=== PATIENT | female | born 1960 | race Caucasian/White ===

== ENCOUNTER → 2018-07-14 | Emergency (ER) | payer MEDICAID ==
[~2018-07-14] VITALS: Ht 149.9 cm; Wt 62.6 kg
[~2018-07-14] MED LIST: IPRATROPIUM/ALBUTEROL SULFATE 3 ML AMPUL.NEB (DUONEB) INH ONE; methylPREDNISolone SOD SUCC/PF 62.5 MG/ML VIAL IVP ONE
[2018-07-14 22:38] VITALS: BP_SYST 143
--- NOTE | 2018-07-14 22:44 | NUR ---
Pt c/o difficulty breathing with cough since 2029 tonight. Pt states that she took breathing tx and inhaler at home, but no relief. Able to speak in clear sentences, respirations even and non-labored, NAD, VSS. SPO2 99% RA. Denies c/o C/P.
--- NOTE | 2018-07-14 22:44 | NUR ---
Pt ambulatory to bed 6 for evaluation
--- NOTE | 2018-07-14 23:14 | NUR ---
Dr. Guevara at bedside.
--- NOTE | 2018-07-14 23:30 | NUR ---
# 22 gauge angiocath placed to Left Wrist. Use of asceptic technique. Opsite placed over site. Blood return noted. Blood for lab drawn from site. Flushed with 10 cc of normal saline. No evidence of infiltration noted. Patient tolerated well.
--- NOTE | 2018-07-14 23:37 | NUR ---
X-ray at bedside.
[2018-07-14 23:54] LABS: BASOPHILS % (AUTO) 0.6 % (0.0-2.0); EOSINOPHILS # (AUTO) 0.3 K/uL (0.0-0.4); EOSINOPHILS % (AUTO) 3.4 % (0.0-4.0); HEMOGLOBIN 13.1 g/dL (12.0-16.0); LYMPHOCYTES # (AUTO) 2.4 K/uL (1.0-5.5); MEAN CORPUSCULAR HEMOGLOBIN 30 pg (27-31); MEAN CORPUSCULAR HGB CONC 35 % (32-36); MEAN CORPUSCULAR VOLUME 88 fL (79.0-98.0); MONOCYTES # (AUTO) 0.7 K/uL (0.0-1.0); MONOCYTES % (AUTO) 7.5 % (1.7-9.3); NEUTROPHILS # (AUTO) 5.4 K/uL (1.8-7.7); NEUTROPHILS % (AUTO) 61.5 % (40.0-70.0); PLATELET COUNT (AUTO) 310 K/uL (130-430); RED BLOOD CELL COUNT(AUTO) 4.31 MIL/uL (4.2-6.2); RED CELL DISTRIBUTION WIDTH 13.4 % (9.0-15.0); WHITE BLOOD COUNT (AUTO) 8.8 K/uL (4.8-10.8)
--- NOTE | 2018-07-15 | NUR ---
RT at bedside to administer breathing tx.
[2018-07-15 00:09] LABS: CALCIUM 9.4 mg/dL (8.4-11.0); CREATININE 0.97 mg/dL (0.55-1.30); POTASSIUM 3.1 mmol/L (3.5-5.1)
[2018-07-15 00:16] LABS: ALBUMIN 3.6 g/dL (3.4-4.8); TOTAL BILIRUBIN 0.1 mg/dL (0.0-1.0)
--- NOTE | 2018-07-15 00:26 | NUR ---
Pt states that she feels better. No SOB, denies C/P, NAD, VSS. SPO2 98% RA. Family member at bedside.
[2018-07-15 00:42] VITALS: BP_SYST 136
--- NOTE | 2018-07-15 00:42 | NUR ---
Patient given written and verbal discharge instructions and verbalizes understanding. ER MD discussed with patient the results and treatment provided. Patient in stable condition. ID arm band removed. IV catheter removed intact and dressing applied, no active bleeding. Rx of prednisone given. Patient educated on pain management and to follow up with PMD in 2-3 days. Pain Scale 0/10 Opportunity for questions provided and answered. Medication side effect fact sheet provided.
== END | disposition still patient (30) ==
LOC: SED 22:30
DX: J45.901 Unspecified asthma with (acute) exacerbation (principal); I10 Essential (primary) hypertension; Z90.49 Acquired absence of other specified parts of digestive tract
CPT/HCPCS: 36415; 71045; 80053; 85025; 87040; 94640; 96374; 99284; J2930; J7620

== ENCOUNTER 2018-09-08 17:09 | Emergency (ER) | payer MEDICAID ==
[~2018-09-08] VITALS: Ht 144.8 cm; Wt 61.2 kg
[2018-09-08 17:10] VITALS: BP_SYST 139
[2018-09-08] MEDS ORDERED: HYDROcodone/ACETAMIN 10-325 MG TAB PO ONE (18:15)
[2018-09-08 18:44] VITALS: BP_SYST 138
== END 2018-09-08 18:46 | disposition home or self-care (01) ==
LOC: SED 17:09
DX: S63.91XA Sprain of unspecified part of right wrist and hand, initial encounter (principal); J45.909 Unspecified asthma, uncomplicated; I10 Essential (primary) hypertension; X50.9XXA Other and unspecified overexertion or strenuous movements or postures, initial encounter; Y93.89 Activity, other specified; Y92.89 Other specified places as the place of occurrence of the external cause; Y99.8 Other external cause status
CPT/HCPCS: 99283

== ENCOUNTER 2018-10-01 09:38 | Emergency (ER) | payer MEDICAID ==
[~2018-10-01] VITALS: Ht 149.9 cm; Wt 61.2 kg
[2018-10-01 09:47] VITALS: BP_SYST 125
[2018-10-01] MEDS ORDERED: ALBUTEROL SULFATE 0.083% 2.5 MG/3 ML VIAL.NEB IH ONE ×2 (10:00→10:30)
[2018-10-01] MEDS ORDERED: IPRATROPIUM BROM 0.5 MG/2.5 ML VIAL.NEB (ATROVENT) IH ONE ×2 (10:00→10:30)
[2018-10-01] MEDS ORDERED: methylPREDNISolone SOD SUCC/PF 62.5 MG/ML VIAL IVP ONE (10:00)
[2018-10-01] MEDS ORDERED: ALBUTEROL SULFATE 0.083% 2.5 MG/3 ML VIAL.NEB INH ONE (10:34)
[2018-10-01] MEDS ORDERED: IPRATROPIUM BROM 0.5 MG/2.5 ML VIAL.NEB (ATROVENT) INH ONE (10:34)
[2018-10-01 11:32] VITALS: BP_SYST 136
== END 2018-10-01 11:33 | disposition home or self-care (01) ==
LOC: SED 09:38
DX: J45.901 Unspecified asthma with (acute) exacerbation (principal); I10 Essential (primary) hypertension; Z90.49 Acquired absence of other specified parts of digestive tract
CPT/HCPCS: 94640; 99284; 96374; J2930; J7613

== ENCOUNTER 2018-11-30 20:50 | Emergency (ER) | payer MEDICAID ==
[~2018-11-30] VITALS: Ht 149.9 cm; Wt 61.2 kg
[2018-11-30 20:55] VITALS: BP_SYST 140
--- NOTE | 2018-11-30 20:55 | NUR ---
Placed in room 1. Placed on head of transport logistics, blood pressure machine and pulse oximeter. To gown for exam. Side rails up. Report given to Viviana DUCKWORTH.
[2018-11-30] MEDS ORDERED: IPRATROPIUM/ALBUTEROL SULFATE 3 ML AMPUL.NEB (DUONEB) INH ONE ×2 (21:00→21:30)
--- NOTE | 2018-11-30 21:05 | NUR ---
Patient AOx4, presents to ED with complaint of sudden onset SOB since 1900 today. Patient also reports a cough and wheezing, she used her prescribed Albuterol with minimal relief. Patient reports hx of Asthma. Patient also states she had a similar episode about 2 months ago and received Solumedrol and relieved symptoms. No other symptoms or complaints.
--- NOTE | 2018-11-30 21:18 | NUR ---
ED MD Almodovar at bedside for medical evaluation.
[2018-11-30] MEDS ORDERED: ASPIRIN 81 MG TAB.CHEW PO ONE (21:30)
[2018-11-30] MEDS ORDERED: methylPREDNISolone SOD SUCC/PF 62.5 MG/ML VIAL IVP ONE (21:30)
--- NOTE | 2018-11-30 21:44 | NUR ---
# 20 gauge angiocath placed to left hand. Use of asceptic technique. Opsite placed over site. Blood return noted. Flushed with 10 cc of normal saline. No evidence of infiltration noted. Patient tolerated well.
[2018-11-30 21:45] LABS: BASOPHILS % (AUTO) 0.6 % (0.0-2.0); EOSINOPHILS # (AUTO) 0.2 K/uL (0.0-0.4); EOSINOPHILS % (AUTO) 2.9 % (0.0-4.0); HEMATOCRIT 38.7 % (36-48); HEMOGLOBIN 13.4 g/dL (12.0-16.0); LYMPHOCYTES # (AUTO) 2.8 K/uL (1.0-5.5); LYMPHOCYTES % (AUTO) 32.7 % (20.5-51.5); MEAN CORPUSCULAR HEMOGLOBIN 31 pg (27-31); MEAN CORPUSCULAR HGB CONC 35 % (32-36); MEAN CORPUSCULAR VOLUME 90 fL (79.0-98.0); MONOCYTES # (AUTO) 0.6 K/uL (0.0-1.0); NEUTROPHILS # (AUTO) 4.9 K/uL (1.8-7.7); NEUTROPHILS % (AUTO) 56.8 % (40.0-70.0); PLATELET COUNT (AUTO) 269 K/uL (130-430); RED BLOOD CELL COUNT(AUTO) 4.29 MIL/uL (4.2-6.2); RED CELL DISTRIBUTION WIDTH 13.6 % (9.0-15.0); WHITE BLOOD COUNT (AUTO) 8.6 K/uL (4.8-10.8)
--- NOTE | 2018-11-30 22:05 | NUR ---
No adverse reactions noted after medication administration. Will continue to monitor.
[2018-11-30 22:13] LABS: PROTHROMBIN TIME 9.7 SECS (9.5-12.5)
--- NOTE | 2018-11-30 23:02 | NUR ---
Patient states she has decreased SOB at this time.
[2018-11-30 23:03] LABS: POTASSIUM 3.1 mmol/L (3.5-5.1)
[2018-11-30 23:04] LABS: CREATININE 1.08 mg/dL (0.55-1.30); TOTAL BILIRUBIN 0.2 mg/dL (0.0-1.0)
[2018-11-30] MEDS ORDERED: DILT240C54 PO (23:20)
[2018-11-30] MEDS ORDERED: AMLO5TAB4 PO (23:21)
[2018-11-30] MEDS ORDERED: OMEP40CA33 PO (23:21)
[2018-11-30] MEDS ORDERED: ASPI-1155 PO (23:21)
[2018-11-30] MEDS ORDERED: VITD2000 PO (23:23)
[2018-11-30] MEDS ORDERED: CALC-16 PO (23:23)
[2018-11-30] MEDS ORDERED: BUDE0.5A4 NEB (23:26)
[2018-11-30] MEDS ORDERED: LORA-259 PO (23:27)
[2018-11-30] MEDS ORDERED: IBUP-1970 PO (23:27)
[2018-11-30] MEDS ORDERED: FLUT50BL IH (23:29)
[2018-11-30] MEDS ORDERED: BUDE6.9H INH (23:29)
[2018-11-30 23:42] LABS: BILIRUBIN,URINE NEGATIVE (NEGATIVE); BLOOD, URINE NEGATIVE (NEGATIVE); CLARITY/URINE CLEAR (CLEAR); COLOR,URINE YELLOW (YELLOW); GLUCOSE,URINE NEGATIVE (NEGATIVE); KETONES,URINE NEGATIVE (NEGATIVE); LEUKOCYTE ESTERASE ,URINE NEGATIVE (NEGATIVE); NITRITE, URINE NEGATIVE (NEGATIVE); PH,URINE 5.5 (5.0-8.0); PROTEIN URINE NEGATIVE (NEGATIVE); UROBILINOGEN,URINE 0.2 (0.2-1.0)
--- NOTE | 2018-12-01 00:23 | NUR ---
Patient does not wish to proceed with medical care recommended by Dr. Almodovar. Patient given information related to possible complications, up to and including , which could occur as a result of leaving hospital at this time. Patient verbalizes understanding of risks involved leaving against medical advice. Patient has signed AMA form.
== END 2018-12-01 00:23 | disposition left against medical advice (07) ==
LOC: SED 20:50
DX: R06.02 Shortness of breath (principal); J45.909 Unspecified asthma, uncomplicated; I10 Essential (primary) hypertension
CPT/HCPCS: 36415; 71045; 80053; 81003; 83880; 84484; 85025; 85379; 85610; 85730; 93005; 94640; 96374; 99284; J2930; J7620

== ENCOUNTER 2019-03-01 19:32 | Emergency (ER) | payer MEDICAID ==
[~2019-03-01] VITALS: Ht 149.9 cm; Wt 61.2 kg
[~2019-03-01 19:32] MED LIST changes: +AMLO5TAB4 PO; +ASPI-1155 PO; +BUDE0.5A4 NEB; +BUDE6.9H INH; +CALC-16 PO; +DILT240C54 PO; +FLUT50BL IH; +IBUP-1970 PO; -IPRATROPIUM/ALBUTEROL SULFATE 3 ML AMPUL.NEB (DUONEB) INH ONE; +LORA-259 PO; +OMEP40CA33 PO; +VITD2000 PO; -methylPREDNISolone SOD SUCC/PF 62.5 MG/ML VIAL IVP ONE
[2019-03-01 19:42] VITALS: BP_SYST 152
[2019-03-01] MEDS ORDERED: IPRATROPIUM BROM 0.5 MG/2.5 ML VIAL.NEB (ATROVENT) INH ONE (20:00)
[2019-03-01] MEDS ORDERED: ALBUTEROL SULFATE 0.083% 2.5 MG/3 ML VIAL.NEB INH ONE (20:00)
[2019-03-01] MEDS ORDERED: PREDNISONE 20 MG TABLET PO ONE (20:00)
[2019-03-01 22:43] VITALS: BP_SYST 141
== END 2019-03-01 22:43 | disposition home or self-care (01) ==
LOC: SED 19:32
DX: J44.1 Chronic obstructive pulmonary disease with (acute) exacerbation (principal); J45.901 Unspecified asthma with (acute) exacerbation; I10 Essential (primary) hypertension; Z79.82 Long term (current) use of aspirin; Z79.899 Other long term (current) drug therapy
CPT/HCPCS: 71046; 94640; 99283; J7512; J7613

== ENCOUNTER 2022-04-29 20:13 | Inpatient (IN) | payer BC, MEDICAID ==
[~2022-04-29] VITALS: Ht 152.4 cm; Wt 61.7 kg
[~2022-04-29 20:13] MED LIST changes: +OMEP40CA20 PO; -OMEP40CA33 PO
[2022-04-29 20:15] VITALS: BP_SYST 158
--- NOTE | 2022-04-29 20:19 | NUR ---
Oseas Tucker given report to Primary nurse
--- NOTE | 2022-04-29 20:19 | NUR ---
Patient triaged and placed in bed 1. MD AND RN VALENTINA AWARE OF PT ARRIVAL. Accompanied by SELF AND MD notified of need for MSE.
--- NOTE | 2022-04-29 20:23 | NUR ---
ER at bedside examining patient.
[2022-04-29] MEDS ORDERED: IPRATROPIUM BROM 0.5 MG/2.5 ML VIAL.NEB (ATROVENT) INH ONE (20:30)
[2022-04-29] MEDS ORDERED: methylPREDNISolone SOD SUCC/PF 62.5 MG/ML VIAL IVP ONE (20:30)
[2022-04-29] MEDS ORDERED: MAGNESIUM SULFATE 50 ML IV ONE (20:30)
[2022-04-29] MEDS ORDERED: ALBUTEROL SULFATE 0.083% 2.5 MG/3 ML VIAL.NEB INH ONE (20:30)
[2022-04-29 21:14] LABS: BASOPHILS # (AUTO) 0.1 K/uL (0.0-0.2); BASOPHILS % (AUTO) 0.8 % (0.0-2.0); EOSINOPHILS # (AUTO) 0.2 K/uL (0.0-0.4); EOSINOPHILS % (AUTO) 1.5 % (0.0-4.0); HEMOGLOBIN 13.3 g/dL (12.0-16.0); LYMPHOCYTES # (AUTO) 2.5 K/uL (1.0-5.5); LYMPHOCYTES % (AUTO) 20.5 % (20.5-51.5); MEAN CORPUSCULAR HEMOGLOBIN 30 pg (27-31); MEAN CORPUSCULAR HGB CONC 34 % (32-36); MEAN CORPUSCULAR VOLUME 89 fL (79.0-98.0); MONOCYTES # (AUTO) 0.7 K/uL (0.0-1.0); MONOCYTES % (AUTO) 6.1 % (1.7-9.3); NEUTROPHILS # (AUTO) 8.7 K/uL (1.8-7.7); NEUTROPHILS % (AUTO) 71.1 % (40.0-70.0); PLATELET COUNT (AUTO) 300 K/uL (130-430); RED CELL DISTRIBUTION WIDTH 13.1 % (9.0-15.0); WHITE BLOOD COUNT (AUTO) 12.2 K/uL (4.8-10.8)
[2022-04-29 21:53] LABS: ANION GAP 14 (5-15); CALCIUM 9.5 mg/dL (8.4-11.0); CHLORIDE 101 mmol/L (98-107); CREATININE 1.13 mg/dL (0.55-1.30); GLUCOSE 188 mg/dL (70-99); UREA NITROGEN, BLOOD 17 mg/dL (8-21)
[2022-04-29] MEDS ORDERED: AZITHROMYCIN 500 MG in NS 250 ML IV ONE (22:00)
[2022-04-29] MEDS ORDERED: NACL 0.9% 2,000 ML IV ONE (22:00)
[2022-04-29] MEDS ORDERED: cefTRIAXone 1 GM in D5W 50 ML IV ONE (22:00)
[2022-04-29 22:01] LABS: ALANINE AMINOTRANSFERASE 29 U/L (12-78); ALBUMIN 3.9 g/dL (3.4-4.8); ASPARTATE AMINOTRANSFERASE 15 U/L (10-37); TOTAL BILIRUBIN 0.2 mg/dL (0.0-1.0)
[2022-04-29 22:08] LABS: GFR AFRICAN AMERICAN 63 mL/min (>90)
[2022-04-29] MEDS ORDERED: POTASSIUM CHLORIDE 20 MEQ/PKT PACKET PO ONE (22:15)
[2022-04-29] MEDS ORDERED: POTASSIUM CHLORIDE 40 MEQ in NS 250 ML IV ONE (22:15)
[2022-04-29] MEDS ORDERED: AZITHROMYCIN 500 MG/VIAL (ZITHROMAX) IV ONE (22:24)
[2022-04-29] MEDS ORDERED: cefTRIAXone 1 GM VIAL ONE (22:24)
[2022-04-29] MEDS ORDERED: [UNRECOGNIZED DRUG - CODE] INH (22:59)
[2022-04-29] MEDS ORDERED: BUDESONIDE IH (22:59)
[2022-04-29] MEDS ORDERED: LEVA1.2527 INH (22:59)
[2022-04-29] MEDS ORDERED: VITAMIN D PO (22:59)
[2022-04-29] MEDS ORDERED: HYDR25TA4 PO (22:59)
[2022-04-29] MEDS ORDERED: MONT-40 PO (22:59)
[2022-04-29] MEDS ORDERED: OYSTER SHELL PO (22:59)
--- NOTE | 2022-04-29 23:03 | NUR ---
Medication reconciliation completed with information provided by pt at the bed side. Any prior medication reconciliation on file was reviewed and corrected.
[2022-04-29] MEDS ORDERED: KCL 20 mEq in 100 mL (PREMIX) 200 ML IV ONE (23:12)
[2022-04-29 23:20] LABS: BILIRUBIN,URINE NEGATIVE (NEGATIVE); BLOOD, URINE NEGATIVE (NEGATIVE); CLARITY/URINE CLEAR (CLEAR); COLOR,URINE YELLOW (YELLOW); GLUCOSE,URINE TRACE (NEGATIVE); KETONES,URINE NEGATIVE (NEGATIVE); LEUKOCYTE ESTERASE ,URINE NEGATIVE (NEGATIVE); NITRITE, URINE NEGATIVE (NEGATIVE); PROTEIN URINE NEGATIVE (NEGATIVE); UROBILINOGEN,URINE 0.2 (0.2-1.0)
[2022-04-30] VITALS (15 sets, daily range): BP systolic 106–139
[2022-04-30] MEDS ORDERED: MORPHINE 2 MG/ML INJ. SYRINGE IVP PRN ×2 (02:00)
[2022-04-30] MEDS ORDERED: MUPIROCIN 2% TOPICAL OINTMENT 22 GM NS PRN (02:00)
[2022-04-30] MEDS ORDERED: ACETAMINOPHEN 325 MG TABLET PO PRN (02:00)
[2022-04-30] MEDS ORDERED: ONDANSETRON HCL 4 MG/2 ML VIAL IVP PRN (02:00)
[2022-04-30] MEDS ORDERED: MAGNESIUM SULFATE 50 ML IV PRN (02:00)
[2022-04-30] MEDS ORDERED: DOCUSATE SODIUM 100 MG CAPSULE PO PRN (02:00)
[2022-04-30] MEDS ORDERED: DEXTROSE 50% JECT 50 ML DISP.SYRIN IVP PRN (02:00)
[2022-04-30] MEDS ORDERED: POTASSIUM CHLORIDE 20 MEQ TAB.PRT.SR PO PRN (02:00)
[2022-04-30] MEDS ORDERED: NACL 0.9% 1,000 ML IV ONE (02:15)
--- NOTE | 2022-04-30 02:20 | NUR ---
Admit bed requested Patient will be admitted to care of . Admitted to Tele unit. Diagnosis COPD Inpatient (Yes or No) Yes Observation (Yes or No) no Orientation concerns or request close to nursing station (Yes or No) no Covid Status negative On vent or bipap no Isolation requirements no Needs a sitter no From Home (Yes or if No enter name of facility) yes Requires Dialysis (Yes or No) no Med Rec Completed (Yes of No) yes
--- NOTE | 2022-04-30 05:18 | NUR ---
MD AT BEDSIDE TO DISCUSS RECENT LAB VALUES AND PLAN OF CARE.
[2022-04-30] MEDS ORDERED: iohexoL 350 mgI/mL, 100 ML INFUS..BTL IV ONE (05:22)
--- NOTE | 2022-04-30 05:33 | NUR ---
CONSENT COMPLETED AND PT DEPARTED TO CT.
--- NOTE | 2022-04-30 06:40 | NUR ---
Received report from DENTAL HYGIENE ADMINISTRATIVE ASSISTANT Jay for continuity of care. Patient came in at 0640 in the ICU from ER. Patient's vital signs blood pressure 117/82, respirations 17, heart rate 110, and SPO2 99% on room air. Patient is AAOx4, follows command. Per DENTAL HYGIENE ADMINISTRATIVE ASSISTANT, patient uses bathroom. Patient has IV access on the right AC 18g and left hand 20g. Bed is locked and in lowest position, call light button within reach, fall and safety precautions is in place.
--- NOTE | 2022-04-30 07:00 | NUR ---
Gave report to morning RN to continue care. Patient's vital signs blood pressure 138/82, heart rate 117, respirations 17, and SPO2 99% on room air. Started IV fluid NS @ 100mL/hr per order.
[2022-04-30] MEDS: ALBUTEROL SULFATE 0.083% 2.5 MG/3 ML VIAL.NEB INH SCH ×3 (07:17→20:17)
--- NOTE | 2022-04-30 07:20 | NUR ---
receive pt from solar energy system installer helper nurse, pt lying in the bed, on room air, breathing unlabored and easy, O2 sat well, awake and alert, right IV infusing with NS, Addendum: 04/30/22 at 0907 by Jermaine Silvestre RN moving all extremities, skin warm to touch
[2022-04-30] MEDS: METHYLPREDNISOLONE SOD SUCC 40 MG/ML VIAL IVP SCH ×3 (07:58→22:34)
[2022-04-30] MEDS: amLODIPine BESYLATE 5 MG TABLET PO SCH (08:22)
[2022-04-30] MEDS: ASPIRIN 81 MG TAB.CHEW PO SCH (08:27)
[2022-04-30] MEDS: INSULIN LISPRO SLIDING SCALE 100 UNITS/ML, 3 ML VIAL (humaLOG) SUBCUT PRN ×3 (08:29→18:36)
[2022-04-30 09:32] LABS: CALCIUM 9.1 mg/dL (8.4-11.0); CREATININE 0.98 mg/dL (0.55-1.30)
[2022-04-30 09:41] LABS: BASOPHILS % (AUTO) 0.2 % (0.0-2.0); HEMATOCRIT 38.8 % (36-48); LYMPHOCYTES # (AUTO) 0.7 K/uL (1.0-5.5); LYMPHOCYTES % (AUTO) 5.1 % (20.5-51.5); MEAN CORPUSCULAR HEMOGLOBIN 30 pg (27-31); MEAN CORPUSCULAR HGB CONC 34 % (32-36); MEAN CORPUSCULAR VOLUME 90 fL (79.0-98.0); MONOCYTES # (AUTO) 0.1 K/uL (0.0-1.0); MONOCYTES % (AUTO) 0.5 % (1.7-9.3); NEUTROPHILS # (AUTO) 12.5 K/uL (1.8-7.7); NEUTROPHILS % (AUTO) 94.2 % (40.0-70.0); PLATELET COUNT (AUTO) 308 K/uL (130-430); RED BLOOD CELL COUNT(AUTO) 4.32 MIL/uL (4.2-6.2); WHITE BLOOD COUNT (AUTO) 13.2 K/uL (4.8-10.8)
[2022-04-30] MEDS: NACL 0.9% 1,000 ML IV SCH ×2 (15:24→22:00)
[2022-04-30] MEDS ORDERED: MONTELUKAST 10 MG TABLET PO SCH (18:00)
--- NOTE | 2022-04-30 19:20 | NUR ---
transfer pt to wheel chair to 117A in stable condition,and hand off pt to DONITA Ryan, Pt lying in the bed, breathing on room air, O2 sat well, no acute distress noted.
[2022-04-30] MEDS ORDERED: cefTRIAXone 1 GM IVPB PREMIX 50 ML IV SCH (22:00)
[2022-04-30] MEDS ORDERED: AZITHROMYCIN 500 MG in NS 250 ML IV SCH (22:00)
[2022-04-30] MEDS ORDERED: cefTRIAXone 1 GM IVPB PREMIX 50 ML IV ONE (22:58)
[2022-04-30] MEDS ORDERED: AZITHROMYCIN 500 MG/VIAL (ZITHROMAX) IV ONE (23:01)
--- NOTE | 2022-04-30 23:16 | NUR ---
CONSULTATION CALLED FOR DR. NY FOR CONSULT OF COPD ORDER BY DR. PIERCE SPOKE WITH ANGLE
--- NOTE | 2022-04-30 23:56 | NUR ---
CONSULTATION CALLED FOR DR SALDAÑA FOR CONSULT OF ADVERSE LABS ORDER BY DR PIERCE SPOKE WITH JOVANNY
--- NOTE | 2022-05-01 02:21 | NUR ---
CONSULTATION CALLED FOR DR. GALLARDO FOR CONSULT OF COPD ORDER BY DR. PIERCE SPOKE WITH JOVANNY
--- NOTE | 2022-05-01 03:00 | NUR ---
C/O right AC IV site hurting. New IV site started Left forearm and old IV site removed. Patient tolerated well.
[2022-05-01 04:00] VITALS: BP_SYST 126
[2022-05-01] MEDS: METHYLPREDNISOLONE SOD SUCC 40 MG/ML VIAL IVP SCH (06:48)
[2022-05-01] MEDS: ALBUTEROL SULFATE 0.083% 2.5 MG/3 ML VIAL.NEB INH SCH ×3 (07:32→12:00)
[2022-05-01 07:35] LABS: HEMATOCRIT 36.2 % (36-48); HEMOGLOBIN 12.1 g/dL (12.0-16.0); MEAN CORPUSCULAR HEMOGLOBIN 30 pg (27-31); MEAN CORPUSCULAR HGB CONC 33 % (32-36); MEAN CORPUSCULAR VOLUME 89 fL (79.0-98.0); PLATELET COUNT (AUTO) 312 K/uL (130-430); RED BLOOD CELL COUNT(AUTO) 4.06 MIL/uL (4.2-6.2); RED CELL DISTRIBUTION WIDTH 13.5 % (9.0-15.0)
[2022-05-01 07:47] LABS: CALCIUM 8.9 mg/dL (8.4-11.0); CREATININE 0.67 mg/dL (0.55-1.30)
[2022-05-01 08:00] VITALS: BP_SYST 122
[2022-05-01 08:03] LABS: WHITE BLOOD COUNT (AUTO) 23.9 K/uL (4.8-10.8)
[2022-05-01] MEDS ORDERED: PRED10TA PO (09:21)
[2022-05-01] MEDS ORDERED: AZIT500T3 PO (09:21)
[2022-05-01] MEDS: amLODIPine BESYLATE 5 MG TABLET PO SCH (09:38)
[2022-05-01] MEDS: ASPIRIN 81 MG TAB.CHEW PO SCH (09:38)
[2022-05-01] MEDS: NACL 0.9% 1,000 ML IV SCH (09:39)
[2022-05-01 11:27] VITALS: BP_SYST 119
[2022-05-01 12:43] LABS: ATYPICAL LYMPHOCYTES % 0 % (0-0); BAND % (MANUAL) 6 % (0-6); BASOPHILS % (MANUAL) 0 % (0-2); EOSINOPHILS % (MANUAL) 1 % (0-7); LYMPHOCYTES % (MANUAL) 4 % (20-46); MONOCYTES % (MANUAL) 3 % (0-11)
--- NOTE | 2022-05-01 13:03 | NUR ---
CALLED AND INFORM MD OF INCREASE WBC, 25 [address], PER DR. KARI SEGURA TO DISCHARGE HOME WITH THAT INCREASE WBC.
[2022-05-01 13:04] VITALS: BP_SYST 121
== END 2022-05-01 13:30 | disposition home or self-care (01) | DRG 871 ==
LOC: SED 20:13 → STU 04-30 01:57 → SIC 04-30 06:40 → STU 04-30 18:55
PROVIDERS: ADMIT Family Medicine; ATTEND Family Medicine
DX: A41.9 Sepsis, unspecified organism (principal); J18.9 Pneumonia, unspecified organism; J96.01 Acute respiratory failure with hypoxia; R65.21 Severe sepsis with septic shock; J45.901 Unspecified asthma with (acute) exacerbation; J44.1 Chronic obstructive pulmonary disease with (acute) exacerbation; J44.0 Chronic obstructive pulmonary disease with (acute) lower respiratory infection; E87.6 Hypokalemia; Z20.822 Contact with and (suspected) exposure to COVID-19; Z79.82 Long term (current) use of aspirin; Z79.899 Other long term (current) drug therapy; Z90.49 Acquired absence of other specified parts of digestive tract
CPT/HCPCS: 36415; 71045; 71275; 76376; 80048; 80053; 81003; 82962; 83605; 83735; 83880; 84484; 85007; 85025; 85027; 87040; 87081; 87086; 93005; 94640; 94760; 99291; G0378; J0456; J0696; J1030; J2930; J3475; J3480; J7050; J7613; Q9967

== ENCOUNTER 2022-11-13 13:07 | Inpatient (IN) | payer BC, MEDICAID ==
[~2022-11-13] VITALS: Ht 149.9 cm; Wt 63.6 kg
[~2022-11-13 13:07] MED LIST changes: +AZIT500T3 PO; -BUDE6.9H INH; -CALC-16 PO; -DILT240C54 PO; +HYDR25TA4 PO; -IBUP-1970 PO; +LEVA1.2527 INH; -LORA-259 PO; +MONT-40 PO; +PRED10TA PO; +VITAMIN D PO; -VITD2000 PO; +[UNRECOGNIZED DRUG - CODE] INH
[2022-11-13 13:14] VITALS: BP_SYST 137; PULSE 98; RESP 24; TEMP 98.3; O2SAT 96
[2022-11-13] MEDS ORDERED: IPRATROPIUM/ALBUTEROL SULFATE 3 ML AMPUL.NEB (DUONEB) ONE (13:20)
[2022-11-13] MEDS ORDERED: IPRATROPIUM/ALBUTEROL SULFATE 3 ML AMPUL.NEB (DUONEB) INH ONE ×2 (13:30→14:45)
[2022-11-13 13:54] LABS: BASOPHILS % (AUTO) 0.2 % (0.0-2.0); EOSINOPHILS % (AUTO) 0.4 % (0.0-4.0); HEMOGLOBIN 14.4 g/dL (12.0-16.0); LYMPHOCYTES % (AUTO) 8.9 % (20.5-51.5); MEAN CORPUSCULAR HEMOGLOBIN 30 pg (27-31); MEAN CORPUSCULAR HGB CONC 34 % (32-36); MEAN CORPUSCULAR VOLUME 89 fL (79.0-98.0); MONOCYTES # (AUTO) 0.2 K/uL (0.0-1.0); MONOCYTES % (AUTO) 1.9 % (1.7-9.3); NEUTROPHILS # (AUTO) 10.1 K/uL (1.8-7.7); NEUTROPHILS % (AUTO) 88.6 % (40.0-70.0); PLATELET COUNT (AUTO) 319 K/uL (130-430); RED BLOOD CELL COUNT(AUTO) 4.84 MIL/uL (4.2-6.2); RED CELL DISTRIBUTION WIDTH 13.5 % (9.0-15.0); WHITE BLOOD COUNT (AUTO) 11.4 K/uL (4.8-10.8)
[2022-11-13 14:16] LABS: ALANINE AMINOTRANSFERASE 32 U/L (12-78); ALBUMIN 3.9 g/dL (3.4-4.8); ANION GAP 18 (5-15); ASPARTATE AMINOTRANSFERASE 15 U/L (10-37); CALCIUM 9.6 mg/dL (8.4-11.0); CARBON DIOXIDE 22 mmol/L (23-29); CHLORIDE 100 mmol/L (98-107); CREATININE 1.06 mg/dL (0.55-1.30); GFR AFRICAN AMERICAN 68 mL/min (>90); GLUCOSE 151 mg/dL (74-106); SODIUM SERUM 140 mmol/L (136-145); TOTAL BILIRUBIN 0.2 mg/dL (0.0-1.0); TOTAL PROTEIN, SERUM 7.4 g/dL (6.4-8.3); UREA NITROGEN, BLOOD 11 mg/dL (8-21)
[2022-11-13 14:26] LABS: GFR NON AFRICAN-AMERICAN 56 mL/min (>90); POTASSIUM 2.5 mmol/L (3.5-5.1)
[2022-11-13] MEDS ORDERED: POTASSIUM CHLORIDE 20 MEQ TAB.PRT.SR PO ONE (14:45)
[2022-11-13] MEDS ORDERED: methylPREDNISolone SOD SUCC/PF 62.5 MG/ML VIAL IVP ONE (14:45)
[2022-11-13] MEDS ORDERED: KCL 20 mEq in 100 mL (PREMIX) 100 ML IV ONE (14:45)
[2022-11-13] MEDS ORDERED: AZITHROMYCIN 500 MG in NS 250 ML IV ONE (15:00)
[2022-11-13] MEDS ORDERED: cefTRIAXone 1 GM in D5W 50 ML IV ONE (15:00)
[2022-11-13] MEDS ORDERED: NACL 0.9% 2,000 ML IV ONE (16:00)
[2022-11-13] MEDS ORDERED: cefTRIAXone 1 GM VIAL ONE (16:05)
[2022-11-13] MEDS ORDERED: AZITHROMYCIN 500 MG/VIAL (ZITHROMAX) IV ONE (16:39)
[2022-11-13 18:16] LABS: BILIRUBIN,URINE NEGATIVE (NEGATIVE); BLOOD, URINE NEGATIVE (NEGATIVE); CLARITY/URINE Clear (CLEAR); COLOR,URINE YELLOW (YELLOW); GLUCOSE,URINE Trace (NEGATIVE); KETONES,URINE NEGATIVE (NEGATIVE); LEUKOCYTE ESTERASE ,URINE NEGATIVE (NEGATIVE); NITRITE, URINE NEGATIVE (NEGATIVE); PH,URINE 5.5 (5.0-8.0); PROTEIN URINE NEGATIVE (NEGATIVE); UROBILINOGEN,URINE 0.2 (0.2-1.0)
[2022-11-13] MEDS ORDERED: MONT-40 PO (19:04)
[2022-11-13] MEDS ORDERED: FLUT100B INH (19:04)
[2022-11-13] MEDS ORDERED: IPRATROPIUM/ALBUTEROL SULFATE 3 ML AMPUL.NEB (DUONEB) INH PRN (20:15)
[2022-11-13] MEDS: NACL 0.9% 1,000 ML IV SCH (22:00)
[2022-11-13 23:00] VITALS: BP_SYST 136; PULSE 103; RESP 20; TEMP 97.1; O2SAT 98
[2022-11-13 23:52] VITALS: BP_SYST 118; PULSE 100; O2SAT 96
[2022-11-14] VITALS: BP_SYST 131; PULSE 80; RESP 16; TEMP 97.5; O2SAT 97
[2022-11-14] MEDS: NACL 0.9% 1,000 ML IV SCH ×3 (00:14→16:45)
[2022-11-14 08:20] VITALS: BP_SYST 133; PULSE 89; RESP 18; TEMP 97; O2SAT 98
[2022-11-14] MEDS ORDERED: METHYLPREDNISOLONE SOD SUCC 40 MG/ML VIAL IVP SCH (09:00)
[2022-11-14 10:45] VITALS: O2SAT 96
[2022-11-14] MEDS ORDERED: HYDROCHLOROTHIAZIDE 25 MG TABLET (HCTZ) PO ONE (11:30)
[2022-11-14] MEDS ORDERED: amLODIPine BESYLATE 10 MG TABLET PO ONE (11:30)
[2022-11-14] MEDS ORDERED: PANTOPRAZOLE SODIUM 40 MG TAB PO ONE (11:30)
[2022-11-14] MEDS ORDERED: CHOLECALCIFEROL (VITAMIN D3) 2,000 UNIT TABLET PO ONE (11:45)
[2022-11-14] MEDS ORDERED: ASPIRIN 81 MG TAB.CHEW PO ONE (11:45)
[2022-11-14 11:51] VITALS: BP_SYST 126; PULSE 88; RESP 16; TEMP 97.7; O2SAT 98
[2022-11-14] MEDS ORDERED: LevALBUTEROL HCL 1.25 MG/0.5 ML *CONC.* VIAL.NEB (XOPENEX CONC.) INH PRN (12:00)
[2022-11-14 14:11] LABS: CALCIUM 9.2 mg/dL (8.4-11.0); CREATININE 1.25 mg/dL (0.55-1.30); POTASSIUM 3.6 mmol/L (3.5-5.1)
[2022-11-14] MEDS: AZITHROMYCIN 500 MG in NS 250 ML IV SCH (14:51)
[2022-11-14] MEDS: cefTRIAXone 1 GM in D5W 50 ML IV SCH (15:58)
[2022-11-14] MEDS ORDERED: cefTRIAXone 1 GM VIAL IM SCH (16:00)
[2022-11-14 17:15] VITALS: BP_SYST 125; PULSE 97; RESP 18; TEMP 97.4; O2SAT 95
[2022-11-14] MEDS: MONTELUKAST 10 MG TABLET PO SCH (18:15)
[2022-11-14 20:00] VITALS: BP_SYST 123; PULSE 88; RESP 19; TEMP 98.2; O2SAT 96; O2SAT 98
[2022-11-14 22:46] LABS: ALBUMIN 3.4 g/dL (3.4-4.8); BILIRUBIN,DIRECT 0.1 mg/dL (0.0-0.3); TOTAL BILIRUBIN 0.2 mg/dL (0.0-1.0); TOTAL PROTEIN, SERUM 6.4 g/dL (6.4-8.3)
[2022-11-15] MEDS: NACL 0.9% 1,000 ML IV SCH ×3 (00:45→17:43)
[2022-11-15 08:00] VITALS: BP_SYST 135; PULSE 76; RESP 18; TEMP 97.9; O2SAT 97
[2022-11-15 08:08] LABS: BASOPHILS # (AUTO) 0.1 K/uL (0.0-0.2); BASOPHILS % (AUTO) 0.8 % (0.0-2.0); EOSINOPHILS % (AUTO) 0.1 % (0.0-4.0); HEMATOCRIT 38.1 % (36-48); HEMOGLOBIN 12.6 g/dL (12.0-16.0); LYMPHOCYTES # (AUTO) 2.4 K/uL (1.0-5.5); LYMPHOCYTES % (AUTO) 13.3 % (20.5-51.5); MEAN CORPUSCULAR HEMOGLOBIN 30 pg (27-31); MEAN CORPUSCULAR HGB CONC 33 % (32-36); MEAN CORPUSCULAR VOLUME 90 fL (79.0-98.0); MONOCYTES # (AUTO) 0.8 K/uL (0.0-1.0); MONOCYTES % (AUTO) 4.5 % (1.7-9.3); NEUTROPHILS # (AUTO) 14.9 K/uL (1.8-7.7); NEUTROPHILS % (AUTO) 81.3 % (40.0-70.0); PLATELET COUNT (AUTO) 318 K/uL (130-430); RED BLOOD CELL COUNT(AUTO) 4.25 MIL/uL (4.2-6.2); RED CELL DISTRIBUTION WIDTH 13.8 % (9.0-15.0); WHITE BLOOD COUNT (AUTO) 18.3 K/uL (4.8-10.8)
[2022-11-15 08:12] VITALS: O2SAT 97
[2022-11-15 08:31] LABS: CREATININE 0.72 mg/dL (0.55-1.30); POTASSIUM 3.4 mmol/L (3.5-5.1)
[2022-11-15] MEDS: CHOLECALCIFEROL (VITAMIN D3) 2,000 UNIT TABLET PO SCH (09:17)
[2022-11-15] MEDS: PANTOPRAZOLE SODIUM 40 MG TAB PO SCH (09:17)
[2022-11-15] MEDS: ASPIRIN 81 MG TAB.CHEW PO SCH (09:18)
[2022-11-15] MEDS: amLODIPine BESYLATE 10 MG TABLET PO SCH (09:18)
[2022-11-15] MEDS: HYDROCHLOROTHIAZIDE 25 MG TABLET (HCTZ) PO SCH (09:18)
[2022-11-15] MEDS ORDERED: POTASSIUM CHLORIDE 20 MEQ TAB.PRT.SR PO ONE (10:00)
[2022-11-15 12:00] VITALS: BP_SYST 121; PULSE 67; RESP 15; TEMP 97.7; O2SAT 98
[2022-11-15] MEDS: cefTRIAXone 1 GM in D5W 50 ML IV SCH (14:19)
[2022-11-15] MEDS: AZITHROMYCIN 500 MG in NS 250 ML IV SCH (15:44)
[2022-11-15 16:00] VITALS: BP_SYST 116; PULSE 80; RESP 15; TEMP 98.2; O2SAT 96
[2022-11-15] MEDS: MONTELUKAST 10 MG TABLET PO SCH (17:43)
[2022-11-15 20:30] VITALS: BP_SYST 132; PULSE 85; RESP 16; TEMP 97.5; O2SAT 95
[2022-11-16] VITALS: O2SAT 96
[2022-11-16] MEDS: NACL 0.9% 1,000 ML IV SCH ×2 (00:45→08:45)
[2022-11-16 01:00] VITALS: BP_SYST 125; PULSE 73; RESP 16; TEMP 98.3; O2SAT 95
[2022-11-16 05:09] LABS: BASOPHILS # (AUTO) 0.2 K/uL (0.0-0.2); BASOPHILS % (AUTO) 1.7 % (0.0-2.0); EOSINOPHILS # (AUTO) 0.1 K/uL (0.0-0.4); EOSINOPHILS % (AUTO) 1.4 % (0.0-4.0); HEMATOCRIT 40.4 % (36-48); HEMOGLOBIN 13.7 g/dL (12.0-16.0); LYMPHOCYTES # (AUTO) 3.6 K/uL (1.0-5.5); LYMPHOCYTES % (AUTO) 39.1 % (20.5-51.5); MEAN CORPUSCULAR HEMOGLOBIN 30 pg (27-31); MEAN CORPUSCULAR HGB CONC 34 % (32-36); MEAN CORPUSCULAR VOLUME 89 fL (79.0-98.0); MONOCYTES # (AUTO) 0.7 K/uL (0.0-1.0); MONOCYTES % (AUTO) 7.1 % (1.7-9.3); NEUTROPHILS # (AUTO) 4.7 K/uL (1.8-7.7); NEUTROPHILS % (AUTO) 50.7 % (40.0-70.0); PLATELET COUNT (AUTO) 306 K/uL (130-430); RED BLOOD CELL COUNT(AUTO) 4.55 MIL/uL (4.2-6.2); RED CELL DISTRIBUTION WIDTH 13.3 % (9.0-15.0); WHITE BLOOD COUNT (AUTO) 9.2 K/uL (4.8-10.8)
[2022-11-16 05:31] LABS: CREATININE 0.82 mg/dL (0.55-1.30); POTASSIUM 3.4 mmol/L (3.5-5.1)
[2022-11-16 08:00] VITALS: BP_SYST 143; PULSE 82; RESP 16; TEMP 98; O2SAT 97
[2022-11-16 08:10] VITALS: O2SAT 97
[2022-11-16] MEDS: HYDROCHLOROTHIAZIDE 25 MG TABLET (HCTZ) PO SCH (08:53)
[2022-11-16] MEDS: CHOLECALCIFEROL (VITAMIN D3) 2,000 UNIT TABLET PO SCH (08:53)
[2022-11-16] MEDS: PANTOPRAZOLE SODIUM 40 MG TAB PO SCH (08:53)
[2022-11-16] MEDS: ASPIRIN 81 MG TAB.CHEW PO SCH (08:53)
[2022-11-16] MEDS: amLODIPine BESYLATE 10 MG TABLET PO SCH (08:54)
[2022-11-16] MEDS ORDERED: predniSONE 20 MG TABLET PO SCH (09:00)
[2022-11-16 10:19] VITALS: BP_SYST 143; PULSE 82; O2SAT 97
[2022-11-16] MEDS ORDERED: POTASSIUM CHLORIDE 20 MEQ TAB.PRT.SR PO ONE (11:30)
[2022-11-16] MEDS ORDERED: PRED20TA PO (11:33)
[2022-11-16] MEDS ORDERED: DOXY-244 PO (11:33)
[2022-11-16 13:29] VITALS: BP_SYST 132; PULSE 80; RESP 18; TEMP 98.1; O2SAT 97
== END 2022-11-16 14:00 | disposition home or self-care (01) | DRG 871 ==
LOC: SED 13:07 → STU 20:10 → SMU 11-15 12:43
PROVIDERS: ADMIT Internal Medicine; ATTEND Internal Medicine
DX: A41.9 Sepsis, unspecified organism (principal); J18.9 Pneumonia, unspecified organism; J96.01 Acute respiratory failure with hypoxia; J44.1 Chronic obstructive pulmonary disease with (acute) exacerbation; J45.901 Unspecified asthma with (acute) exacerbation; E87.20 Acidosis, unspecified; J44.0 Chronic obstructive pulmonary disease with (acute) lower respiratory infection; I10 Essential (primary) hypertension; K21.9 Gastro-esophageal reflux disease without esophagitis; T38.0X5A Adverse effect of glucocorticoids and synthetic analogues, initial encounter; E87.6 Hypokalemia
CPT/HCPCS: 36415; 71045; 80048; 80053; 80076; 81003; 83605; 83735; 83880; 84484; 85025; 87040; 93005; 94640; 94760; 96365; 99291; G0378; J0456; J0696; J1030; J2930; J3480; J7050; J7060; J7512

== ENCOUNTER 2023-09-08 12:09 | Emergency (ER) | payer BC, MEDICAID ==
[~2023-09-08] VITALS: Ht 144.8 cm; Wt 59.4 kg
[~2023-09-08 12:09] MED LIST changes: +AZIT500T PO; -AZIT500T3 PO; +DOXY-244 PO; +FLUT100B INH; -PRED10TA PO; +PRED20TA PO
[2023-09-08 12:18] VITALS: BP_SYST 130; PULSE 90; RESP 16; TEMP 97.7; O2SAT 97
[2023-09-08] MEDS ORDERED: LevALBUTEROL HCL 1.25 MG/0.5 ML *CONC.* VIAL.NEB (XOPENEX CONC.) INH ONE (12:22)
[2023-09-08] MEDS ORDERED: IPRATROPIUM BROM 0.5 MG/2.5 ML VIAL.NEB (ATROVENT) INH ONE (12:22)
[2023-09-08] MEDS: LevALBUTEROL HCL 1.25 MG/0.5 ML *CONC.* VIAL.NEB (XOPENEX CONC.) INH ONE (12:25)
[2023-09-08] MEDS: IPRATROPIUM BROM 0.5 MG/2.5 ML VIAL.NEB (ATROVENT) INH ONE (12:25)
[2023-09-08 12:30] VITALS: TEMP 99.1
[2023-09-08 12:57] VITALS: BP_SYST 126; PULSE 93; RESP 14; O2SAT 97
[2023-09-08] MEDS ORDERED: AZIT500T PO (13:31)
[2023-09-08] MEDS ORDERED: METH-776 PO (13:31)
== END 2023-09-08 13:44 | disposition home or self-care (01) ==
LOC: SED 12:09
DX: J44.1 Chronic obstructive pulmonary disease with (acute) exacerbation (principal); R06.02 Shortness of breath; I10 Essential (primary) hypertension; Z79.899 Other long term (current) drug therapy; Z79.2 Long term (current) use of antibiotics
CPT/HCPCS: 83880; 84484; 36415; 93005; 94640; 99284; J7612